=== PATIENT | male | born 1965 | race Two or more races ===

== ENCOUNTER 2020-12-07 08:30 | Inpatient (IN) | payer OTHER ==
[~2020-12-07] VITALS: Ht 177.8 cm; Wt 127.0 kg
[2020-12-30] MEDS ORDERED: PERCOCET 5-3251 EACH PO (08:26)
[2020-12-30] MEDS ORDERED: INTESTINEX680 M1 PO (08:28)
[2020-12-30] MEDS ORDERED: NEURONTIN300 MG PO (08:28)
== END 2020-12-30 11:43 | disposition home or self-care (01) | DRG 330 ==
LOC: SURH 12-14 08:30 → O/R 12-14 09:32 → SURG 12-14 09:32 → O/R 12-14 17:04 → SURG 12-14 17:06
PROVIDERS: ADMIT Surgery; ATTEND Surgery
PROC: 07BB4ZZ Excision of Mesenteric Lymphatic, Percutaneous Endoscopic Approach (ICD-10-PCS; 2020-12-14)
PROC: 0DBB4ZZ Excision of Ileum, Percutaneous Endoscopic Approach (ICD-10-PCS; 2020-12-14)
PROC: 0DBU4ZZ Excision of Omentum, Percutaneous Endoscopic Approach (ICD-10-PCS; 2020-12-14)
PROC: 0DTF4ZZ Resection of Right Large Intestine, Percutaneous Endoscopic Approach (ICD-10-PCS; principal; 2020-12-14 09:00)
PROC: 02HV33Z Insertion of Infusion Device into Superior Vena Cava, Percutaneous Approach (ICD-10-PCS; 2020-12-24)
DX: C18.0 Malignant neoplasm of cecum (principal); K91.89 Other postprocedural complications and disorders of digestive system; K56.7 Ileus, unspecified; D49.0 Neoplasm of unspecified behavior of digestive system; K57.30 Diverticulosis of large intestine without perforation or abscess without bleeding; E66.9 Obesity, unspecified; G47.33 Obstructive sleep apnea (adult) (pediatric); K76.0 Fatty (change of) liver, not elsewhere classified